=== PATIENT | male | born 1960 | race Caucasian/White ===

== ENCOUNTER 2023-12-04 09:28 | Emergency (ER) | payer OTHER ==
[~2023-12-04] VITALS: Ht 175.3 cm; Wt 112.7 kg
[2023-12-04] MEDS ORDERED: INSUDET SC (09:47)
[2023-12-04] MEDS ORDERED: MONT10TA97 PO (09:47)
[2023-12-04] MEDS ORDERED: NOVOINJ SC (09:47)
[2023-12-04] MEDS ORDERED: MOME13HF8 INH (09:47)
[2023-12-04] MEDS ORDERED: METF10004 PO (09:47)
[2023-12-04] MEDS ORDERED: ELIQ2.5T PO (09:47)
[2023-12-04] MEDS ORDERED: SPIR1CAP INH (09:47)
[2023-12-04] MEDS ORDERED: GLYB2.5T7 PO (09:47)
[2023-12-04 10:14] LABS: VENOUS BASE EXCESS 2.2 (-2.0-2.0); VENOUS HCO3 27.1 MMOL/L (23.0-27.0); VENOUS O2 SATURATION 68.2 % (60.0-80.0); VENOUS PARTIAL PRESSURE CO2 42.9 mmHg (38.0-50.0); VENOUS PARTIAL PRESSURE O2 34.4 mmHg (30.0-50.0); VENOUS PH 7.418 UNITS (7.330-7.430); VENOUS STANDARD HCO3 25.5 MMOL/L; VENOUS TOTAL CO2 28.4 MMOL/L (24.0-28.0)
[2023-12-04 10:17] LABS: BASO # 0.1 10^3/uL (0.0-0.2); BASO % 0.6 % (0.0-1.0); EOS # 0.3 10^3/uL (0.0-0.5); EOS % 2.2 % (0.0-3.0); HEMATOCRIT 45.5 % (42.0-52.0); HEMOGLOBIN 15.6 g/dl (13.5-17.5); LYMPH # 1.4 10^3/uL (1.5-5.0); LYMPH % 9.5 % (24.0-44.0); MEAN CORPUSCULAR HEMOGLOBIN 28.8 pg (27.0-33.0); MEAN CORPUSCULAR HGB CONC 34.3 g/dl (32.0-36.5); MEAN CORPUSCULAR VOLUME 83.9 fl (80.0-96.0); MONO # 1.1 10^3/uL (0.0-0.8); MONO % 7.6 % (2.0-8.0); NEUTROPHILS # 11.7 10^3/uL (1.5-8.5); NEUTROPHILS % 79.7 % (36.0-66.0); PLATELET COUNT, AUTOMATED 322 10^3/uL (150-450); RED BLOOD COUNT 5.42 10^6/uL (4.30-6.10); WHITE BLOOD COUNT 14.7 10^3/uL (4.0-10.0)
[2023-12-04 10:47] LABS: ALBUMIN 2.8 G/DL (3.2-5.2); ALKALINE PHOSPHATASE 90 U/L (46-116); ALT/SGPT 11 U/L (7.0-40); AST/SGOT 12 U/L (<34); BILIRUBIN,DIRECT 0.4 MG/DL (<0.4); BILIRUBIN,TOTAL 1.1 MG/DL (0.3-1.2); BLOOD UREA NITROGEN 12 MG/DL (9-23); CALCIUM LEVEL 8.7 MG/DL (8.3-10.6); CARBON DIOXIDE LEVEL 27 MMOL/L (20-31); CHLORIDE LEVEL 101 MMOL/L (98-107); CREATININE FOR GFR 0.65 MG/DL (0.70-1.30); GLOMERULAR FILTRATION RATE > 60.0 (>49); GLUCOSE, FASTING 278 MG/DL (74-106); POTASSIUM SERUM 3.8 MMOL/L (3.5-5.1); SODIUM LEVEL 135 MMOL/L (136-145); TOTAL PROTEIN 6.4 G/DL (5.7-8.2)
[2023-12-04] MEDS ORDERED: METO200T15 PO (10:50)
[2023-12-04] MEDS ORDERED: JARD1TAB3 PO (10:50)
[2023-12-04] MEDS ORDERED: INSULANT SC (10:50)
[2023-12-04] MEDS ORDERED: KETO2CR TOP (10:50)
[2023-12-04] MEDS ORDERED: ENTR1TAB7 PO (10:50)
[2023-12-04] MEDS ORDERED: LISI40TA4 PO (10:50)
[2023-12-04] MEDS ORDERED: DOXY-440 PO (10:50)
[2023-12-04] MEDS ORDERED: ATOR40TA75 PO (10:50)
[2023-12-04] MEDS ORDERED: FURO40TA2 PO (10:50)
[2023-12-04] MEDS ORDERED: POTA20LI16 PO (10:50)
[2023-12-04] MEDS ORDERED: TRAZ-257 PO (10:50)
[2023-12-04] MEDS ORDERED: ACET-683 PO (10:50)
[2023-12-04] MEDS ORDERED: LEVAINH INH (10:50)
[2023-12-04 10:56] LABS: ABG BASE EXCESS 2.9 (-2.0-2.0); ABG HCO3 25.3 MMOL/L (22.0-26.0); ABG O2 SATURATION 97.2 % (95.0-99.0); ABG PARTIAL PRESSURE CO2 32.9 mmHg (35.0-45.0); ABG PARTIAL PRESSURE O2 83.9 mmHg (75.0-100.0); ABG TOTAL CO2 26.3 MMOL/L (23.0-31.0); ABG pH (ARTERIAL) 7.504 UNITS (7.350-7.450)
[2023-12-04 11:42] VITALS: BP 151/90
[2023-12-04] MEDS: FUROSEMIDE 40 MG TAB PO ONE (11:42)
[2023-12-04] MEDS: APIXABAN 5 MG TAB (ELIQUIS) PO ONE (11:42)
[2023-12-04] MEDS: METOPROLOL SUCC (TopROL XL) 100MG *XL* TAB PO ONE (11:42)
[2023-12-04 12:09] LABS: AMPHETAMINES LEVEL URINE NEGATIVE (NEGATIVE); BARBITURATES URINE NEGATIVE (NEGATIVE); BENZODIAZEPINES URINE NEGATIVE (NEGATIVE); CANNABINOIDS URINE NEGATIVE (NEGATIVE); COCAINE METABOLITE URINE NEGATIVE (NEGATIVE); METHADONE URINE NEGATIVE (NEGATIVE); OPIATES URINE NEGATIVE (NEGATIVE); PHENCYCLIDINE URINE NEGATIVE (NEGATIVE)
[2023-12-04] MEDS: ENTRESTO 49-51MG TABLET (SACUBITRIL/VALSARTAN) PO ONE (12:18)
[2023-12-04] MEDS ORDERED: ISOVUE-370 76% 100ML VIAL As Ordered ONE (12:37)
[2023-12-04 13:55] VITALS: O2SAT 96
[2023-12-04] MEDS: LEVALBUTEROL 1.25MG 0.5ML CONCENTRATE NEB NEB ONE (14:58)
[2023-12-04 15:09] VITALS: BP 172/107; TEMP 98.5; O2SAT 95
== END 2023-12-04 15:17 | disposition home or self-care (01) ==
LOC: M ED 09:28
DX: I11.0 Hypertensive heart disease with heart failure (principal); J45.909 Unspecified asthma, uncomplicated; S76.311A Strain of muscle, fascia and tendon of the posterior muscle group at thigh level, right thigh, initial encounter; X58.XXXA Exposure to other specified factors, initial encounter; Y92.9 Unspecified place or not applicable; Y93.9 Activity, unspecified; Y99.9 Unspecified external cause status; I48.91 Unspecified atrial fibrillation; E11.9 Type 2 diabetes mellitus without complications; E78.5 Hyperlipidemia, unspecified; Z79.01 Long term (current) use of anticoagulants; Z79.4 Long term (current) use of insulin; Z79.899 Other long term (current) drug therapy; Z91.012 Allergy to eggs; Z91.013 Allergy to seafood; Z91.010 Allergy to peanuts; Z88.2 Allergy status to sulfonamides; Z88.8 Allergy status to other drugs, medicaments and biological substances
CPT/HCPCS: 36600; 71045; 71275; 80048; 80076; 80307; 82803; 85025; 87486; 87581; 87633; 87798; 93005; 93041; 94640; 94760; 99285; Q9967

== ENCOUNTER → 2023-12-21 | Outpatient (CLI) | payer OTHER ==
[~2023-12-21] MED LIST: ACET-683 PO; ATOR40TA75 PO; DOXY-440 PO; ELIQ2.5T PO; ENTR1TAB7 PO; FURO40TA2 PO; GLYB2.5T7 PO; INSUDET SC; INSULANT SC; JARD1TAB3 PO; KETO2CR TOP; LEVAINH INH; LISI40TA4 PO; METF10004 PO; METO200T15 PO; MOME13HF8 INH; MONT10TA97 PO; NOVOINJ SC; POTA20LI16 PO; SPIR1CAP INH; TRAZ-257 PO
== END ==
LOC: M CARPUL 09:18
PROVIDERS: ATTEND Internal Medicine Pulmonary Disease
DX: R06.00 Dyspnea, unspecified (principal); I48.91 Unspecified atrial fibrillation